=== PATIENT | male | born 1965 | race Caucasian/White ===

== ENCOUNTER 2016-07-26 20:26 | Emergency (ER) | payer OTHER ==
--- NOTE | ~2016-07-26 | CR141 ---
[facility] A Service of [facility] RADIOLOGY TEXT RESULTS PATIENT: TWYLA DELCID LOCATION: SED : 67 UNIT #: [id number] AGE: [address]: LEFTY SHRESTHA SEX: M ORDER DR: [id number] [place] [id number] MR#: [id number] Acc #: [id number] NAME: TWYLA DELCID : [id number] SEX: M STUDY DATE/TIME: 07/26/2016 20:34 UNIT: SED ROOM: STUDY DESCRIPTION: CR Hand Min 3 Views Lt Attending Physician: Lefty Shrestha Referring Physician: Chavo Chowdary M.D. Ordering Physician: Marshall Gardner M.D. Primary Care Physician: Sunday Castillo Pa-C MEDICAL IMAGING REPORT This report is preliminary unless electronic signature is present. EXAM Left hand, 3 views. DATE OF EXAM 07/26/2016 INDICATIONS 51-year-old male with hand swelling and pain after falling last night. COMPARISON There are no comparisons. FINDINGS There is a nondisplaced obliquely oriented comminuted fracture of the proximal third metacarpal. No other fractures are noted. There are 2 tiny radiopaque foreign bodies in the region of the nail of the middle finger. Soft tissue swelling of the dorsum of the hand. IMPRESSION 1. Obliquely oriented comminuted nondisplaced fracture of the proximal aspect of the third metacarpal with overlying soft tissue swelling. 2. 2 tiny radiopaque densities in the region of the nail of the third finger suspected to be possible foreign bodies. Dictated by... Esdras Clark M.D. THIS IS AN ELECTRONICALLY VERIFIED REPORT Esdras Clark M.D. at 07/27/2016 10:04 AM KELLI/tano TD: 07/27/2016 00:17 [facility] A Service of [facility] RADIOLOGY TEXT RESULTS PATIENT: TWYLA DELCID LOCATION: SED : 67 UNIT #: [id number] AGE: [address]: LEFTY SHRESTHA SEX: M ORDER DR: JOB #: [id number] MEDICAL IMAGING REPORT Page 1 of 1
[~2016-07-26 20:26] MED LIST: SYNTHROID0.05 MG PO
== END 2016-07-26 21:30 | disposition home or self-care (01) ==
LOC: SED 20:26
DX: S62.393A Other fracture of third metacarpal bone, left hand, initial encounter for closed fracture (principal); Z79.899 Other long term (current) drug therapy; W19.XXXA Unspecified fall, initial encounter; Y92.009 Unspecified place in unspecified non-institutional (private) residence as the place of occurrence of the external cause
CPT/HCPCS: 29125; 73130; 96374; 96375; 99283